=== PATIENT | male | born 1985 | race Caucasian/White ===

== ENCOUNTER 2016-07-24 16:21 | Emergency (ER) | payer SELFPAY ==
[2016-07-24] MEDS ORDERED: ONDANSETRON 4 MG/2 ML VIAL IVP ONE (17:08)
[2016-07-24] MEDS ORDERED: HYDROmorphONE/DILAUDID 1 MG/ML SYR IVP ONE (17:09)
[2016-07-24 17:16] LABS: % IMMATURE GRANULYOCYTES 0.2 % (0.0-1.1); ABSOLUTE IMMATURE GRANULOCYTES 0.01 10^3/uL (0.00-0.10); ADD DIFF? NO; ADD MORPH? NO; ADD SCAN? NO; ATYPICAL LYMPHOCYTE FLAG 60 (0-99); FRAGMENT RBC FLAG 0 (0-99); HEMATOCRIT 39.6 % (40.0-51.0); HEMOGLOBIN 12.8 g/dL (13.7-17.5); LEFT SHIFT FLG 0 (0-99); LIPEMIA HEMOLYSIS FLAG 80 (0-99); MEAN CELL HEMOGLOBIN 25.5 pg (27.9-34.1); MEAN CELL HEMOGLOBIN CONCENTR. 32.3 g/dL (32.4-36.7); PLATELET CLUMPS FLAG 0 (0-99); PLATELET COUNT 206 10^3/uL (150-400); RED BLOOD CELL COUNT 5.01 10^6/uL (4.40-6.38); RED CELL DISTRIBUTION WIDTH 14.6 % (11.5-15.2)
[2016-07-24 17:41] LABS: ANION GAP 10 mEq/L (8-16); CALCIUM 9.2 mg/dL (8.5-10.4); CARBON DIOXIDE 24 mEq/l (22-31); CHLORIDE 107 mEq/L (97-110); CREATININE 0.8 mg/dL (0.7-1.3); GLOMERULAR FILTRATION RATE > 60; GLUCOSE 81 mg/dL (70-100); POTASSIUM 4.2 mEq/L (3.5-5.2); SODIUM 141 mEq/L (134-144)
--- NOTE | 2016-07-24 17:43 | EDPHY ---
H & P Time Seen by Provider: 07/24/16 16:31 HPI/ROS: CHIEF COMPLAINT: Headache, concern shunt is malfunctioning HISTORY OF PRESENT ILLNESS: 31-year-old male presents to the emergency department by private vehicle complaining of diffuse headache. He is concerned that his shunt in his brain is malfunctioning. The patient has had over 20 brain surgeries. Most recently patient had a revision to his VB shunt 6 days ago in [place]. The patient is concerned that the shunt is now malfunctioning because he has a diffuse headache and has pain in his head exactly where the the shunt is. Patient denies any reported trauma. Denies chest pain or difficulty breathing. Denies abdominal pain. No known fevers or chills. REVIEW OF SYSTEMS: Constitutional: No fever, no chills. Eyes: No double or blurry vision. ENT: No sore throat. Respiratory: No cough, no shortness of breath. Cardiac: No chest pain. Gastrointestinal: No abdominal pain, vomiting or diarrhea. Genitourinary: No dysuria. Musculoskeletal: No neck or back pain. Skin: No rashes. Neurological: Headache as above Past Medical/Surgical History: Numerous brain surgeries, history of VB shunt placed in [place] with most recent revision 6 days ago in [place] Social History: Single, visiting from [place] Smoking Status: Current every day smoker Physical Exam: General Appearance: Alert, no distress. Mentating normally and answering questions appropriately. Eyes: Pupils equal and round. Extraocular motions are all intact. Pupils are reactive bilaterally. ENT: Mouth: Mucous membranes moist. Respiratory: No wheezing, rhonchi, or rales, lungs are clear to auscultation. Cardiovascular: Regular rate and rhythm. Gastrointestinal: Abdomen is soft and nontender, no masses, no rebound or guarding, bowel sounds normal. Neurological: Alert and oriented x 3, cranial nerves II through XII grossly intact Skin: Warm and dry, no rashes. Healing surgical incision noted to the right posterior scalp. No redness or signs of infection. Musculoskeletal: Nontender to palpate along the cervical, thoracic or lumbar spine. Neck is supple. Extremities: Full range of motion and no peripheral edema. Psychiatric: Patient is oriented X 3, there is no agitation. Constitutional: Initial Vital Signs Temperature (C) 36.4 C 07/24/16 16:32 Heart Rate 85 07/24/16 16:32 Respiratory Rate 16 07/24/16 16:32 Blood Pressure 129/71 H 07/24/16 16:32 O2 Sat (%) 95 07/24/16 16:32 O2 Delivery Mode Room Air Allergies/Adverse Reactions: divalproex sodium [From Depakote] Allergy (Verified 07/24/16 16:30) hydrochlorothiazide Allergy (Verified 07/24/16 16:30) hydroxyzine Allergy (Verified 07/24/16 16:30) metoclopramide HCl [From Reglan] Allergy (Verified 07/24/16 16:30) NSAIDS (Non-Steroidal Anti-Inflamma Allergy (Verified 07/24/16 16:30) phenytoin Allergy (Verified 07/24/16 16:30) prochlorperazine [From Compazine] Allergy (Verified 07/24/16 16:30) prochlorperazine edisylate [From Compazine] Allergy (Verified 07/24/16 16:30) prochlorperazine maleate [From Compazine] Allergy (Verified 07/24/16 16:30) promethazine HCl [From Phenergan] Allergy (Verified 07/24/16 16:30) Sulfa (Sulfonamide Antibiotics) Allergy (Verified 07/24/16 16:30) sumatriptan [From Imitrex] Allergy (Verified 07/24/16 16:30) sumatriptan succinate [From Imitrex] Allergy (Verified 07/24/16 16:30) Home Medications: Medication Instructions Recorded Ethosuximide 07/24/16 Lamictal 07/24/16 Roxicodone 07/24/16 Medical Decision Making - Diagnostics Imaging: CT imaging of the brain without contrast to evaluate LPC shunt was ordered which reveals nothing acute. This was reported to me by Dr. Donal Santiago. ED Course/Re-evaluation: Laboratory studies reveal normal white blood cell count. Chemistries were normal. CT imaging of the brain reveals normal-appearing, functioning shunt. There is no acute abnormalities seen on CT scan. This was explained to the patient the patient was reassured. He will be discharged home. The patient was here to 2 weeks ago on July 08, 2016 and use the name Sean Conrad. He apparently left the department since he did not receive pain medication prior to his CT scan. This was brought to my attention after the patient was discharged from the hospital. Differential Diagnosis: Headache including but not limited to subarachnoid hemorrhage, migraine headache , tension headache and infectious causes such as meningitis, pharyngitis and sinusitis. - Data Points Laboratory Results: Laboratory Results 07/24/16 17:07 07/24/16 17:07 07/24/16 17:07 WBC 5.84 10^3/uL (3.80-9.50) RBC 5.01 10^6/uL (4.40-6.38) Hgb 12.8 L g/dL (13.7-17.5) Hct 39.6 L % (40.0-51.0) MCV 79.0 L fL (81.5-99.8) MCH 25.5 L pg (27.9-34.1) MCHC 32.3 L g/dL (32.4-36.7) RDW 14.6 % (11.5-15.2) Plt Count 206 10^3/uL (150-400) MPV 9.0 fL (8.7-11.7) Neut % (Auto) 56.2 % (39.3-74.2) Lymph % (Auto) 28.3 % (15.0-45.0) [place] % (Auto) 7.4 % (4.5-13.0) Eos % (Auto) 7.4 % (0.6-7.6) Baso % (Auto) 0.5 % (0.3-1.7) Nucleat RBC Rel Count 0.0 % (0.0-0.2) Absolute Neuts (auto) 3.29 10^3/uL (1.70-6.50) Absolute Lymphs (auto) 1.65 10^3/uL (1.00-3.00) Absolute Monos (auto) 0.43 10^3/uL (0.30-0.80) Absolute Eos (auto) 0.43 H 10^3/uL (0.03-0.40) Absolute Basos (auto) 0.03 10^3/uL (0.02-0.10) Absolute Nucleated RBC 0.00 10^3/uL (0-0.01) Immature Gran % 0.2 % (0.0-1.1) Immature Gran # 0.01 10^3/uL (0.00-0.10) Sodium 141 mEq/L (134-144) Potassium 4.2 mEq/L (3.5-5.2) Chloride 107 mEq/L (97-110) Carbon Dioxide 24 mEq/l (22-31) Anion Gap 10 mEq/L (8-16) BUN 10 mg/dL (7-23) Creatinine 0.8 mg/dL (0.7-1.3) Estimated GFR > 60 Glucose 81 mg/dL (70-100) Calcium 9.2 mg/dL (8.5-10.4) Medications Given: Discontinued Medications Hydromorphone HCl (Dilaudid) 1 mg IVP EDNOW ONE Stop: 07/24/16 17:10 Last Admin: 07/24/16 17:17 Dose: 1 mg Ondansetron HCl (Zofran) 4 mg IVP EDNOW ONE Stop: 07/24/16 17:09 Last Admin: 07/24/16 17:18 Dose: 4 mg Departure - Departure Clinical Impression: History of brain shunt Headache Qualifiers: Headache type: unspecified Headache chronicity pattern: acute headache Intractability: not intractable Qualifier Code: (R51) Headache Condition: Good Instructions: Acute Headache (ED) Additional Instructions: Follow up with neurosurgeon to recheck. Referrals: Mario Plummer MD [Medical Doctor] - 2-3 days, call for appt. (Neurosurgeon on- call)
--- NOTE | 2016-07-24 17:58 | CT ---
CT Scan of Head (Without Contrast) Clinical Indications: Evaluate shunt. Technique: Axial CT images were acquired from foramen magnum through vertex, without intravenous con trast. Soft tissue and bone windows were reviewed on the computer workstation. Images were reconstr ucted down to 1.25-mm images. Dose reduction techniques were utilized. Findings: The lateral ventricles are small. There is a shunt present from a right posterior approac h in the lateral ventricle against the midline. There is agenesis of the corpus callosum. There ar e white matter tracts present from prior shunts. The 4th ventricle is normal in size. There are dur al calcifications. No evidence of acute hemorrhage. Impressions 1. No evidence of shunt malfunction. 2. Prior white matter tracts from previous shunts bilaterally in the parietal lobes. 3. Dural calcifications. No evidence of acute abnormality. Critical results relayed by Dr. Santiago to SONAL Scott, on July 24, 2016 at 1748 hours.
[2016-07-24 18:23] VITALS: BP 126/80; PULSE 87; RESP 18; TEMP 98.4; O2SAT 97
== END 2016-07-24 18:22 | disposition home or self-care (01) ==
LOC: EEVIPCON 16:21
DX: R51 Headache (principal); F17.200 Nicotine dependence, unspecified, uncomplicated; Z98.2 Presence of cerebrospinal fluid drainage device
CPT/HCPCS: 96374; J1170; J2405